=== PATIENT | male | born 1960 | race Caucasian/White ===

== ENCOUNTER 2016-06-29 11:39 | Outpatient (RCR) | payer OTHER ==
[~2016-06-29 11:39] MED LIST: AMLO10TA82 PO; ASP81TEC PO; AZIT500T2 PO; CAND8TAB PO; FAMO20TA73 PO; IBUP-15 PO; PNT40TEC PO; PRAV40TA PO; VITA200C53 PO
== END 2016-09-27 | disposition home or self-care (01) ==
LOC: CARD 11:39
PROVIDERS: ATTEND Family Medicine
DX: R00.0 Tachycardia, unspecified (principal)
CPT/HCPCS: 93225; 93226